=== PATIENT | female | born 1985 | race Caucasian/White ===

== ENCOUNTER → 2017-07-05 | Outpatient (CLI) | payer BC | END | disposition home or self-care (01) | LOC: GMALS 10:46 | PROVIDERS: ATTEND Nurse Practitioner Acute Care | DX: E03.9 Hypothyroidism, unspecified (principal) ==

== ENCOUNTER → 2017-09-06 | Outpatient (CLI) | payer BC | LOC: GMALS 16:48 | PROVIDERS: ATTEND Nurse Practitioner Acute Care | DX: D51.3 Other dietary vitamin B12 deficiency anemia (principal) ==